=== PATIENT | female | born 1945 | race Caucasian/White ===

== ENCOUNTER 2016-11-25 10:19 | Day surgery (SDC) | payer MEDICARE, OTHER ==
[~2016-11-25 10:19] MED LIST: ADVAIR 250/5028 PUFF IN; ALIGN4 MG PO; ATIVAN1 MG OR; BUSPAR 10MG TAB10 MG PO; CYMBALTA30 M1 PO; DULOXETINE 30MG30 MG PO; GABAPENTIN300 M1 PO; KEFLEX 500MG.500 MG PO; LEVOTHYROXIN0.125 MG PO; LOMOTIL 0.025 M1 TAB PO; MELOXICAM15 MG PO; METOPROLOL50 MG PO; PERCOCET 5/3251 EACH PO
--- NOTE | 2016-11-25 12:11 | Operative Note ---
Colonoscopy (Jamie) Procedure date: 11/25/16 Date of : 49 Procedure:Colonoscopy Colonoscopy with cold snare polypectomy Indications: Mrs. Eduardo is a 71-year-old female who is here for follow-up screening/ surveillance colonoscopy. The patient did have a colonoscopy in August 2011 at which time 2 polyps approximately 6 and 8 mm) were removed (Dr. Jose Francisco Augustin). The patient was having postprandial diarrhea since her cholecystectomy several years ago. At the time of her last colonoscopy, she had some random colon biopsies which were unremarkable and negative for microscopic colitis. In March 2016 and her diarrhea worsened but ever since that time she has developed constipation and now takes combined fiber bowel regimen (MiraLAX plus Citrucel) daily. She reports no rectal bleeding, abdominal pain, weight loss or family history of colon cancer. Performing Provider: Cassandra Ayala MD Referrring Provider: Abebe Nicolas M.D. Sedation: Fentanyl 200 mg IV/Versed 9 mg IV Procedure: Prior to the procedure, a history and physical exam was performed, and patient medications and allergies were reviewed. The risks and benefits of the procedure and the sedation options and risks were discussed with the patient. All questions were answered and informed consent was obtained. Patient identification and proposed procedure were verified by the physician and the nurse. The patient was placed in a left lateral decubitus position. Throughout the procedure, the patient's blood pressure, pulse, and oxygen saturations were monitored continuously. Findings: On digital rectal examination there was normal rectal tone. There were no external hemorrhoids. The colonoscope was introduced through the anal canal to the rectum and advanced to the cecum. The ileocecal valve and appendiceal orifice were identified. The scope was advanced a short distance into the ileum which appeared grossly normal. The scope was then withdrawn into the colon. There were 4 colon polyps identified in the ascending 1, transverse 2 and descending 1. These ranged in size from 5-9 mm and were all removed via cold snare polypectomy. There were scattered extensive diverticuli throughout the descending and sigmoid colon (LEFT colon). The rectum itself was normal. Upon retroflexion within the rectum there were grade 1 internal hemorrhoids. Impressions: 1. Colonic polyps 4 2. Extensive left-sided diverticulosis 3. Grade 1 internal hemorrhoids Recommendations: I will follow up the polyp pathology and recommend repeat colonoscopy again in 3 -5 years based upon the polyp histology. I would encourage continuation of a fiber bowel regimen on a long-term daily maintenance basis. Complications: None EBL (ml): 0 at 1210
[2016-11-25 15:27] VITALS: BP 135/69
== END 2016-11-25 13:20 | disposition home or self-care (01) ==
LOC: SDC 10:19
PROVIDERS: Internal Medicine Gastroenterology
PROC: 0DBK8ZX Excision of Ascending Colon, Via Natural or Artificial Opening Endoscopic, Diagnostic (ICD-10-PCS; 2016-11-25)
PROC: 0DBM8ZX Excision of Descending Colon, Via Natural or Artificial Opening Endoscopic, Diagnostic (ICD-10-PCS; 2016-11-25)
PROC: 0DBL8ZX Excision of Transverse Colon, Via Natural or Artificial Opening Endoscopic, Diagnostic (ICD-10-PCS; 2016-11-25)
PROC: 0DJD8ZZ Inspection of Lower Intestinal Tract, Via Natural or Artificial Opening Endoscopic (ICD-10-PCS; principal; 2016-11-25 11:30)
DX: Z12.11 Encounter for screening for malignant neoplasm of colon (principal); K63.5 Polyp of colon; K57.30 Diverticulosis of large intestine without perforation or abscess without bleeding; K64.0 First degree hemorrhoids; Z86.010 Personal history of colon polyps